=== PATIENT | female | born 1945 | race Caucasian/White ===

== ENCOUNTER 2020-03-01 07:22 | Day surgery (SDC) | payer OTHER ==
[2020-02-25 11:24] VITALS: BMI 21.2
--- OUTSIDE RECORDS SUMMARY | 2020-03-01 07:26 | XMS ---
:1945 Author Organization [facility] Care Team Providers Name Role Phone Kanganis, Bernarda Unavailable Unavailable Kanganis, Bernarda Unavailable Unavailable Kanganis, Bernarda Unavailable Unavailable Kanganis, Bernarda Unavailable Unavailable Kanganis, Bernarda Unavailable Unavailable Kanganis, Bernarda Unavailable Unavailable Kanganis, Bernarda Unavailable Unavailable Kanganis, Bernarda Unavailable Unavailable Re-disclosure Warning The records that you are about to access may contain information from federally- assisted alcohol or drug abuse programs. If such information is present, then the following federally mandated warning applies: This information has been disclosed to you from records protected by federal confidentiality rules (42 CFR part 2). The federal rules prohibit you from making any further disclosure of this information unless further disclosure is expressly permitted by the written consent of the person to whom it pertains or as otherwise permitted by 42 CFR part 2. A general authorization for the release of medical or other information is NOT sufficient for this purpose. The Federal rules restrict any use of the information to criminally investigate or prosecute any alcohol or drug abuse patient.The records that you are about to access may contain highly sensitive health information, the redisclosure of which is protected by Article 27-F of the [place] Public Health law. If you continue you may haveaccess to information: Regarding HIV / AIDS; Provided by facilities licensed or operated by the [place] [facility] Office of Mental Health; or Provided by the [place] Office for People With Developmental Disabilities. If such information is present, then the following [place] [facility] mandated warning applies: This information has been disclosed to you from confidential records which are protected by state law. State law prohibits you from making any further disclosure of this information without the specific written consent of the person to whom it pertains, or as otherwise permitted by law. Any unauthorized further disclosure in violation of state law may result in a fine or intermediate sentence or both. A general authorization for the release of medical or other information is NOT sufficient authorization for further disclosure. Allergies and Adverse Reactions Type Description Substance Reaction Status Data Source(s ) Drug allergy Penicillin Penicillin Rash NEXTGEN (Jon ton [facility] ) Encounters Encounter Providers Location Date Indications Data Source(s ) Outpatient Attender: Bernarda 06/25/2018 NEXTGEN ( [place] KanganisReferrer: 12:15:00 PM [facility] Attender: Bernarda 06/25/2018 NEXTGEN ( [facility] Medications Medication Brand Start Product Dose Route Administrative Pharmacy [facility] Indications Reaction Description Data Name Date Form Instructions Instructions Source(s) Cholecalcif VITAMI active NEXT GEN geno 400 N D3 ([place] UNT Oral (unkno Children Caps[facility] Health VITAMIN D3 streng [facility] (unknown th) LL) strength) !! Check [employer] Pricing: BIN #: [id number] Group #: [id number] Card #: [id number] PCN:FW FISH OIL (unknown omega-3/dha/epa/fish oil ac tive NEXTGEN ([place] strength) [facility]) !! Check [employer] Pricing: BIN #: [id number] Group #: [id number] Card #: [id number] PCN:FW coenzyme Q10 10 MG CO Q-10 (unknown active NEXTGEN ([place] Oral Capsule CO Q-10 strength) [facility] (unknown strength) [facility]) !! Check [employer] Pricing: BIN #: [id number] Group #: [id number] Card #: [id number] PCN:FW Lutein 6 MG Oral LUTEIN (unknown active NEXTGEN ([place] Capsule LUTEIN strength) [facility] (unknown strength) [facility]) !! Check [employer] Pricing: BIN #: [id number] 94 Group #: [id number] Card #: [id number] PCN:FW multivitamin tablet multivitamin active NEXTGEN ([facility]) !! Check [employer] Pricing: BIN #: [phone] Group #: [id number] Card #: [id number] PCN:FW TURMERIC (unknown turmeric active NEXTGEN ([facility]) [facility]) !! 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 06/25/2018 NEXTGEN ([place] gynecological exam (general) 12:15:00 PM Childr ens examination (routine) w/o [facility] (general) (routine) abn findings [facility]) without abnormal findings 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) SUPPLIES&MATERIALS SPECIAL SUPPLIES 06/25/2018 NEXTG EN ([place] PRV BY PHYS >&ABOVE PHYS/QHP 12:00:00 AM [facility]) BLOOD OCCULT OCCULT BLOOD OTHER 06/25/2018 NEXTGEN ( [place] PEROXIDASE ACTV QUAL SOURCES 12:00:00 AM [facility] OTHER SOURCES [facility] ) Results ID Date Data Source [id number] 02/26/2020 12:45:00 PM EDT [facility] Name Value Range Interpretation Description Data Sup porting Code Source(s) Document(s ) SARS [facility] coronavirus 2 RNA This lab was ordered by [facility] and reported by [facility]. ID Date Data Source [id number] 06/25/2018 01:08:00 PM EST NEXTGEN ([facility] [id number] [facility]) Name Value Range Interpretation Code Description Data Paige rce(s) Supporting Document(s ) Procedure Social History Code Duration Value Status Description Data Source(s ) Caffeine Use 06/25/2018 completed NEXTGEN ([place] ton Details 12:00:00 AM [facility] ) Smoking 06/25/2018 Unknown if completed Unknown if ever NEXTGEN ( [place] 12:00:00 AM ever smoked smoked [facility] ) Alcohol Use completed NEXTGEN (Juan on Details [facility] ) Vital Signs ID Date Data Source UNK Name Value Range Interpretation Code Description Data Source(s) Diastolic blood 76 mm[Hg] 76 mm[Hg] NEXTGEN ( [place] pressure [facility] ) Systolic blood 120 mm[Hg] 120 mm[Hg] NEXTGEN ([place] pressure [facility] ) Body weight 53.977 kg 53.977 kg NEXTGEN (Juan on [facility] ) Patient Treatment Plan of Care Planned Activity Planned Date Details Description Data Source (s) Lutein 6 MG Oral Capsule NEX TGEN ([facility]) coenzyme Q10 10 MG Oral NEXT GEN ([facility]) FISH OIL (unknown strength) NEXTGEN ([facility]) Cholecalciferol 400 UNT Oral NEXTGEN ([facility]) TURMERIC (unknown strength) NEXTGEN ([facility]) multivitamin tablet NEXTGEN ([facility])
[2020-03-01] MEDS: PHENYLEPHRINE 2.5% OPHTH SOLN 15 ML BOTTLE ONE ×3 (08:00→08:10)
[2020-03-01] MEDS: CYCLOPENTOLATE 2% OPHTH SOLN 2 ML BOTTLE ONE ×3 (08:00→08:10)
[2020-03-01] MEDS: CIPROFLOXACIN 0.3% EYE DROPS 5 ML BOTTLE ONE ×3 (08:00→08:10)
[2020-03-01] MEDS: TROPICAMIDE 1% OPHTH SOLN 15 ML BOTTLE ONE ×3 (08:00→08:10)
[2020-03-01] MEDS ORDERED: MIDAZOLAM HCL 2 MG/2 ML SINGLE DOSE VIAL ONE (09:25)
[2020-03-01 10:15] VITALS: TEMP 97.7
[2020-03-01 10:53] VITALS: BP 126/59; PULSE 58
[2020-03-01] MEDS ORDERED: LIDOCAINE 1% P/F 10 MG/ML VIAL ONE (11:14)
[2020-03-01] MEDS ORDERED: NEO/POLYMYX B SULF/DEXAMETH OPHTHALMIC 5ML BOTTLE ONE (11:14)
[2020-03-01] MEDS ORDERED: BSS (NA/CA/MG/K) BALANCED SALT SOLUTION OPHTH SOLN 15 ML BOTTLE ONE (11:14)
[2020-03-01] MEDS ORDERED: TETRACAINE 0.5% OPHTH SOLN 2 ML BOTTLE ONE (11:14)
[2020-03-01] MEDS ORDERED: CARBACHOL 0.01% INTRA-OCULAR 1.5 ML VIAL ONE (11:14)
--- NOTE | 2020-03-01 13:57 | OP ---
DATE OF OPERATION: 03/01/2020 OPERATIVE PROCEDURE: Lens phacoemulsification with posterior chamber intraocular lens placement, right eye. PREOPERATIVE DIAGNOSIS: Visually significant cataract of right eye. POSTOPERATIVE DIAGNOSIS: Visually significant cataract of right eye. SURGEON: Ramon Lancaster M.D. ANESTHESIA: MAC PROCEDURE: The patient was brought to the operating room and placed under monitored anesthesia care by Anesthesia. A drop of tetracaine was then placed over the right eye. The patient was then prepped and draped in the usual sterile manner. A speculum was then placed over the right eye. The eye was then well irrigated with copious amounts of BSS (balanced salt solution). The operating microscope was then moved into position. A paracentesis was performed using a 15-degree blade. At this point 0.5 mL of 1% preservative-free lidocaine was injected into the anterior chamber. Amvisc Plus was then injected into the anterior chamber. A clear corneal incision was then formed using a 2.2-mm keratome. A capsulorrhexis was then performed in a continuous circular fashion beginning with a cystotome completed with a Utrata forceps. Hydrodissection was then performed using BSS on a cannula. The phaco probe was then introduced through the corneal wound and the cataract was removed using the phaco chop technique. Approximately 3 seconds of absolute phaco time was used. The remaining cortex was then removed using irrigation and aspiration with an I/A probe. The capsule was then filled with regular Amvisc and the capsule was noted to be intact. A previously selected foldable posterior chamber intraocular lens was then injected into the capsule through the corneal wound using a lens injector. It was then dialed into position using a Sinskey hook. The Amvisc was then removed using irrigation and aspiration. Miostat was then injected through the paracentesis to constrict the pupil. The paracentesis and corneal wound were then hydrated and noted to be watertight. A drop of Maxitrol was then placed over the eye. The speculum was removed and clear shield was taped over the eye. The patient tolerated the procedure well and there were no surgical complications. The patient was asked to follow up in my office the next day. RAMON LANCASTER M.D. TIANA/[id number]
== END 2020-03-01 10:50 | disposition home or self-care (01) ==
LOC: FASU 07:22
PROVIDERS: ATTEND Ophthalmology
PROC: 08RJ3JZ Replacement of Right Lens with Synthetic Substitute, Percutaneous Approach (ICD-10-PCS; principal; 2020-03-01 09:32)
DX: H26.8 Other specified cataract (principal)